=== PATIENT | female | born 2000 | race African-American/Black ===

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

== ENCOUNTER 2022-06-07 16:14 | Observation (INO) | payer OTHER ==
[~2022-06-07] VITALS: Ht 160 cm; Wt 65.8 kg
[2022-06-07] MEDS ORDERED: ACETAMINOPHEN 325MG TABLET PO NR (17:30)
[2022-06-07] MEDS ORDERED: PREN1COM6 PO (19:28)
== END 2022-06-07 19:50 | disposition home or self-care (01) ==
LOC: 8EST NSY 16:14 → 8 EST A/PP 17:02
PROVIDERS: ADMIT Obstetrics & Gynecology; ATTEND Obstetrics & Gynecology
DX: O26.892 Other specified pregnancy related conditions, second trimester (principal); R10.10 Upper abdominal pain, unspecified; O62.9 Abnormality of forces of labor, unspecified; Z3A.26 26 weeks gestation of pregnancy; W19.XXXA Unspecified fall, initial encounter; Y92.89 Other specified places as the place of occurrence of the external cause; Y93.89 Activity, other specified; Y99.8 Other external cause status
CPT/HCPCS: 59025; 76805; 76818; G0378; 99281